=== PATIENT | male | born 1965 | race Caucasian/White ===

== ENCOUNTER 2025-05-19 06:18 | Emergency (ER) | payer MEDICARE, MEDICAID, SELFPAY ==
[2025-05-19] VITALS (7 sets, daily range): BP systolic 132–156; BP diastolic 72–91; PULSE 56–69; RESP 16–98; TEMP 36.5–37; O2SAT 95–100; BMI 28.7
--- NOTE | 2025-05-19 | XR_ITS ---
Examination: MRI brain without intravenous contrast. Date and time of exam: May 19, 2025 0844 hours INDICATIONS: Headache dizziness today Technique: Multiple axial and sagittal images of the brain obtained. Siemens high-resolution 1.5 Karishma short bore scanners utilized. Sagittal sections, T1-weighted, TR 500, TE 14, are performed. Axial sections proton-density and T2-weighted have been obtained. Inversion recovery axial images, TR 9, 260, TE 111, TI 2500. Diffusion weighted images, axial sections, TR 4800, TE 128, B value 1000 Axial sections, ADC map, TR 4800, TE 128 Findings: Enlargement of the sella turcica is not present. The optic chiasm and infundibular are not remarkable. Prepontine and interpeduncular cisterns are not enlarged. There is no localized enlargement of the medulla or eliza. Fourth ventricle and cerebellar tonsils appear normal in position. No subacute area of hemorrhage density is seen. Mass in the cerebellopontine angle region is not evident. Globes symmetrical. Orbital musculature including medial lateral rectus muscles do not exhibit abnormality. Diffusion-weighted images demonstrate no focus of restricted diffusion. Increased white matter signal multiple punctate foci increased signal in the white matter Mass effect upon the ventricular system is not identified. Impression: Negative for acute hemorrhage mass effect or midline shift No acute infarct Multiple punctate foci increased signal in the white matter, demyelinating disease pattern
--- NOTE | 2025-05-19 06:48 | PD.EDRME ---
Rapid Medical Screening Exam RME Arrival date/time: 05/19/25 06:18 Chief Complaint: Nausea/Vomiting/Diarrhea Time Seen by Provider: 05/19/25 06:21 Vital signs: Vital Signs Temperature 98.2 F 05/19/25 06:19 Pulse Rate 69 05/19/25 06:19 Respiratory Rate 18 05/19/25 06:19 Blood Pressure 147/91 H 05/19/25 06:19 Pulse Oximetry (%) 97 05/19/25 06:19 Oxygen Delivery Method Room Air 05/19/25 06:19 Pulse ox room air 97% Vital signs reviewed by provider: Yes RME Narrative: 59-year-old male presents to the urgent care with complaint of 2 days of intermittent vomiting with decreased appetite, feels hot however there is no recorded fever. Denies diarrhea. Has a decreased appetite. Also complains of dizziness.
--- NOTE | 2025-05-19 07:06 | XR_ITS ---
Examination: CT brain head without contrast. 2-D sagittal coronal reconstructions Date and time of exam:May 19, 2025, 0720 hours INDICATIONS: Headaches dizziness vomiting beginning 2 days ago CTDI: vol (mGy):52.5 DLP: (mGycm):1096 Technique: Multiple CT axial sections of the brain have been obtained, 5 mm slice thickness. Contrast has not been administered. 2-D sagittal, coronal reconstructions have been obtained Low dose protocols were performed. One or more of the following dose reduction techniques were used; automated exposure control, adjustment of the mA and/or KV according to patient size, use of iterative reconstruction technique. Findings: No significant ventricular enlargement. 15 mm low-density area in the right cerebellar hemisphere which may be artifactual, early infarct not excluded, the appearance of the clinically correlated Intra-axial or extra-axial hemorrhage density is not seen. No mass effect or midline shift Basal cisterns are not remarkable. Fourth ventricle is midline. Cranial vault intact. Impression: Negative for acute hemorrhage, mass effect or midline shift 15 mm low-density area in the right cerebellar hemisphere which may be artifactual, early infarct not excluded, the appearance should be clinically correlated Consider brain MRI follow-up, stroke protocol
--- NOTE | 2025-05-19 07:08 | EKG_ITS ---
[facility] Test Date: 2025-05-19 Pat Name: RAJ VICTOR Department: Room: - Gender: Male Medical Care Manager: : 1965 Requested By: Sravani Alanis Order Number: [id number] Reading MD: Sravani Alanis Measurements Intervals [place] Rate: 58 P: 58 KS: 147 QRS: 12 QRSD: 157 T: 49 QT: 431 QTc: 424 Interpretive Statements SINUS BRADYCARDIA RIGHT BUNDLE BRANCH BLOCK [120+ ms QRS DURATION, UPRIGHT V1, 40+ ms S IN I/aVL/V4/V5/V6] No previous ECG available for comparison /store/S0/[id number].pdf
--- NOTE | 2025-05-19 07:12 | PD.EDDIZZY ---
ED Dizzyness RME/HPI General Chief Complaint: Nausea/Vomiting/Diarrhea Stated Complaint: NV DIZZINESS Time Seen by Provider: 05/19/25 06:21 Arrival date/time: 05/19/25 06:18 Limitations: no limitations RME / HPI RME / HPI Narrative: 59-year-old male presents to the urgent care with complaint of 2 days of intermittent vomiting with decreased appetite, feels hot however there is no recorded fever. Denies diarrhea. Has a decreased appetite. Also complains of dizziness. DR. CINDY MÁRQUEZ ED EVALUATION: 59-year-old male with past medical history of pre-diabetes, hypertension, and chronic bronchitis presents to the Emergency Department with dizziness described as room-spinning, generalized weakness, shaking, chills, vomiting, and nausea. Onset of symptoms started yesterday. Patient denies fever, runny nose, or chest pain. No known medication allergies. Related Data Previous Rx's ?Medication ?Instructions ?Recorded ondansetron 4 mg disintegrating 4 mg PO Q12H PRN nausea and 05/19/25 tablet vomiting #6 tabs Allergies Allergy/AdvReac Type Severity Reaction Status Date / Time No Known Allergies Allergy Verified 05/19/25 06:22 Review of Systems Review of Systems Systems Reviewed: All systems reviewed, normal except as documented Past Medical History Social History SMOKING STATUS: Never smoker SUBSTANCE USE: does not use ALCOHOL: Never Past Medical History Comments PMH COMMENT: pre-diabetes, hypertension, and chronic bronchitis ED Exam General Limitations: Present no limitations General appearance: Present alert and in no apparent distress Head Head exam: Present atraumatic, normocephalic and normal inspection Eye Eye exam: Present normal appearance, PERRL, EOMI and nystagmus (vertical) ENT ENT exam: Present normal exam, normal oropharynx and mucous membranes moist Neck Neck exam: Present normal inspection, full ROM and trachea midline Chest Chest inspection: Present normal inspection and symmetric chest wall rise Respiratory Respiratory exam: Present normal lung sounds bilaterally Cardiovascular Cardiovascular exam: Present regular rate, normal rhythm and normal heart sounds Abdominal Exam Abdominal exam: Present soft and normal bowel sounds Extremities Exam Extremities exam: Present normal inspection and full ROM Back Exam Back exam: Present normal inspection and full ROM Neurological Exam Neurological exam: Present alert, oriented X3 and CN II-XII intact Psychiatric Psychiatric exam: Present normal affect and normal mood Skin Skin exam: Present warm, dry, intact and normal color Course Course Course Narrative: 817: Stroke alert initiated. Orders made at this time are congruent stroke protocol. Quality Measures none Orders Category Date Time Status Bedside Blood Glucose NOW Care 05/19/25 08:17 Completed Bedside COVID-19 Antigen Test NOW Care 05/19/25 07:06 Completed [employer] Consultant NOW Care 05/19/25 08:17 Completed Continuous Pulse Oximetry NOW Care 05/19/25 08:17 Completed EKG (ED ONLY) *Do not use* NOW Care 05/19/25 07:08 Completed Insert IV NOW Care 05/19/25 08:17 Completed MRI Screening NOW Care 05/19/25 07:06 Completed MRI Screening NOW Care 05/19/25 08:20 Completed NIH Stroke Scale now Care 05/19/25 08:17 Completed NPO NOW Care 05/19/25 08:17 Completed Neuro Check Q1HR Care 05/19/25 08:18 Completed Nurse Swallow Screen x1 Care 05/19/25 08:17 Completed Consult to Neurology / Tele-Neurology Stat Cons 05/19/25 08:[address] angio stroke protocol Stat Exams 05/19/25 08:[address] head/brain wo con Stat Exams 05/19/25 07:06 Completed EKG (ED Only) Stat Exams 05/19/25 07:08 Draft MR head/brain wo con Stat Exams 05/19/25 Completed CBC Stat Lab 05/19/25 07:40 Completed Comprehensive Metabolic Panel Stat Lab 05/19/25 07:40 Completed Lipase Stat Lab 05/19/25 07:40 Completed Partial Thromboplastin Time Stat Lab 05/19/25 07:40 Completed Prothrombin Time with INR Stat Lab 05/19/25 07:40 Completed Troponin I Stat Lab 05/19/25 07:40 Completed Urinalysis Stat Lab 05/19/25 08:00 Completed Ondansetron Odt [Zofran Odt] Med 05/19/25 06:51 Discontinued 4 mg PO X1 ONE Oxygen Delivery NOW RT 05/19/25 08:17 Completed Vital Signs Vital signs: Vital Signs Temperature 98.2 F 05/19/25 06:19 Pulse Rate 69 05/19/25 06:19 Respiratory Rate 18 05/19/25 06:19 Blood Pressure 147/91 H 05/19/25 06:19 Pulse Oximetry (%) 97 05/19/25 06:19 Oxygen Delivery Method Room Air 05/19/25 06:19 Dizziness MDM Narrative MDM Narrative:: I, Zainab Aldrich, am scribing for and in the presence of Dr. Omalley. Patient is a 59-year-old male with medical history notable for diabetes hypertension hyperlipidemia chronic pain that is in the emergency department with concerns for acute onset feeling with the room spinning, vomiting, feeling shaky and unwell. Vital signs and exam as listed. Ordered CT brain, MRI, labs EKG offered medication for symptom relief. Labs w/o an acute hematologic or metabolic abnormality. Urinalysis without evidence of infection troponin elevated EKG without evidence of ischemia arrhythmia. CT brain showed a 15 mm hypodensity in the right cerebellum, MRI showed multiple areas of hyperdensity concerning for possible demyelinating disease. I did discuss admission with the hospitalist service, and they discussed the case with on-call neurologist which recommended outpatient follow-up given that patient symptoms are completely resolved and he feels better. Imaging did not identify an acute stroke today. Hospital service discussed with patient, patient in agreement. Will discharge home with return precautions follow-up with his primary care doctor, as well as recommendation that he sees a neurologist. Close return precautions provided. Patient data External records reviewed:: [facility] previous records Clinical information provided by:: patient Social determinants that could affect healthcare access:: none Patient has the following chronic illnesses:: pre-diabetes, hypertension, and chronic bronchitis How is presenting disease/condition affected by chronic disease/condition?: exacerbated by Evaluation data The following diagnostics were reviewed and interpreted by me:: lab results, radiology exam(s) and EKG tracing(s) (My interpretation: EKG performed at 0717 hours, sinus bradycardia, rate 58, no ST-T wave changes) Lab and/or radiology exams considered but not ordered:: none Interpretation Summary: Procedure(s): CT head/brain wo con Accession Number(s): [id number] cc: Isabella Pretty PA-C; Rafa Tucker MD; Sravani Omalley MD~ Examination: CT brain head without contrast. 2-D sagittal coronal reconstructions Date and time of exam:May 19, 2025, 0720 hours INDICATIONS: Headaches dizziness vomiting beginning 2 days ago CTDI: vol (mGy):52.5 DLP: (mGycm):1096 Technique: Multiple CT axial sections of the brain have been obtained, 5 mm slice thickness. Contrast has not been administered. 2-D sagittal, coronal reconstructions have been obtained Low dose protocols were performed. One or more of the following dose reduction techniques were used; automated exposure control, adjustment of the mA and/or KV according to patient size, use of iterative reconstruction technique. Findings: No significant ventricular enlargement. 15 mm low-density area in the right cerebellar hemisphere which may be artifactual, early infarct not excluded, the appearance of the clinically correlated Intra-axial or extra-axial hemorrhage density is not seen. No mass effect or midline shift Basal cisterns are not remarkable. Fourth ventricle is midline. Cranial vault intact. Impression: Negative for acute hemorrhage, mass effect or midline shift 15 mm low-density area in the right cerebellar hemisphere which may be artifactual, early infarct not excluded, the appearance should be clinically correlated Consider brain MRI follow-up, stroke protocol Dictated By: Rafa Tucker MD Procedure(s): CT angio stroke protocol Accession Number(s): [id number] cc: Isabella Pretty PA-C; Rafa Tucker MD; Sravani Omalley MD~ Examination: CTA carotids with intravenous contrast CTA brain, head with intravenous contrast. 2-D sagittal, coronal reconstructions. 3-D reconstructions. Exam date and time: May 19, 2025 0834 hours INDICATIONS: Stroke alert, onset headache dizziness vomiting beginning 2 days ago CTDI: vol (mGy) 34.4 DLP: (mGycm) 508 Technique: Multiple CTA axial brain, head carotid images post intravenous contrast injection 75 cc, Isovue-370. 2-D sagittal, coronal reconstructions. 3-D reconstructions, 3-D post processing including vascular maximum intensity projection images. Low dose protocols were performed. One or more of the following dose reduction techniques were used; automated exposure control, adjustment of the mA and/or KV according to patient size, use of iterative reconstruction technique. Findings: No significant common carotid carotid bifurcation or internal carotid artery stenoses Dominant right vertebral artery with no critical vertebral artery stenoses. No cerebral large vessel arterial occlusions or thrombus IMPRESSION: No significant neck arterial stenoses No cerebral large vessel arterial occlusions or thrombus Dictated By: Rafa Tucker MD Procedure(s): MR head/brain wo con Accession Number(s): [id number] cc: Isabella Pretty PA-C; Rafa Tucker MD; Sravani Omalley MD~ Examination: MRI brain without intravenous contrast. Date and time of exam: May 19, 2025 0844 hours INDICATIONS: Headache dizziness today Technique: Multiple axial and sagittal images of the brain obtained. Siemens high-resolution 1.5 Karishma short bore scanners utilized. Sagittal sections, T1-weighted, TR 500, TE 14, are performed. Axial sections proton-density and T2-weighted have been obtained. Inversion recovery axial images, TR 9, 260, TE 111, TI 2500. Diffusion weighted images, axial sections, TR 4800, TE 128, B value 1000 Axial sections, ADC map, TR 4800, TE 128 Findings: Enlargement of the sella turcica is not present. The optic chiasm and infundibular are not remarkable. Prepontine and interpeduncular cisterns are not enlarged. There is no localized enlargement of the medulla or eliza. Fourth ventricle and cerebellar tonsils appear normal in position. No subacute area of hemorrhage density is seen. Mass in the cerebellopontine angle region is not evident. Globes symmetrical. Orbital musculature including medial lateral rectus muscles do not exhibit abnormality. Diffusion-weighted images demonstrate no focus of restricted diffusion. Increased white matter signal multiple punctate foci increased signal in the white matter Mass effect upon the ventricular system is not identified. Impression: Negative for acute hemorrhage mass effect or midline shift No acute infarct Multiple punctate foci increased signal in the white matter, demyelinating disease pattern Dictated By: Rafa Tucker MD Medications / Prescriptions Medications or Prescriptions considered but not ordered:: none Medication administrations:: Medication Administration History Discontinued Medications Ondansetron HCl (Ondansetron Odt 4 Mg Tabrap) 4 mg PO X1 ONE; Protocol Stop: 05/19/25 06:52 Last Admin: 05/19/25 07:15 Dose: 4 mg Documented By: ED see above Consultations Consultation(s) initiated? (list below): Yes Consultation #1 (Physician, Specialty, Details): Discussed test HPI, PMHx, lab, radiology results and/or management with resident working with the hospitalist. They consulted with neurologist who said there is nothing acute today and patient can follow up as an outpatient. Time: 12:02 Diagnosis Dizziness Differential Diagnosis: other (Vertigo, stroke, acs, arrythmia) Most likely diagnosis given after review of the tests above:: vertigo Admission Indicated Admission indicated?: not indicated Admission Request Was there a request for admission?: Yes Admission Attestation Admission request attestation: Admission discussed with hospital service however given reassuring workup, and their consultations with on-call neurologist, they recommend discharge. Patient in agreement. Disposition Plan Disposition Plan: Discharge Discharge Attestation Discharge Attestation: The patient and all family members were given an opportunity to ask questions and understood the discharge instructions. Discharge instructions specifically effects, indications for sooner follow up or return to the emergency department, and the expected course of current diagnosis. Patient condition: Stable Critical Care Time Critical Care Time Critical Care Time: Yes Total Critical Care Time (min.): 80 Attestation: The high probability of sudden, clinically significant deterioration in the patient?s condition required the highest level of my preparedness to intervene urgently. The services I provided to this patient were to treat and/or prevent clinically significant deterioration. Services included the following: chart data review, reviewing nursing notes and/or old charts, documentation time, senior financial consultant collaboration regarding findings and treatment options, medication orders and management, direct patient care, vital sign assessments and ordering, interpreting and reviewing diagnostic studies and lab tests. Aggregate critical care time includes only time during which I was engaged in work directly related to the patient?s care, as described above, whether at bedside or elsewhere in the Emergency Department. It did not include time spent performing other reported procedures or the services of residents, students, nurses or physician assistants. Discharge Plan Plan Patient Disposition: HOME (Self Care) Prescriptions/Referrals Prescriptions/Med Rec: New ondansetron 4 mg tablet,disintegrating 4 mg PO Q12H PRN (Reason: nausea and vomiting) Qty: 6 0RF Referrals: Isabella Pretty PA-C [Primary Care Provider] - In 1 week Problem List Clinical Impression: Vertigo Patient/Caregiver Discharge Instructions Education Materials: Vertigo Medicine Tx Additional Instructions: Please establish care with a neurologist this week. Your MRI was read as having multiple punctate areas of increased density concerning for demyelinating disease. The CT of your brain showed a 15 mm hypodensity in the cerebellum. Given your workup, we discussed admission with the hospitalist team and neurology, they recommended outpatient follow-up with a neurologist as well as physical therapy. If you have recurrence of symptoms or any other symptoms of concern please return to the emergency department immediately. Print Language: Ukrainian Stand Alone Forms: Jodie Award Info., Patient Portal Info Letter
[2025-05-19] MEDS: ONDANSETRON ODT 4 MG TABRAP PO (07:15)
[2025-05-19 08:10] LABS: Collection Type, Urine Clean Catch
[2025-05-19 08:14] LABS: Amorphous Crystals,Urine Present (Absent); Bacteria,Urine Rare; Bilirubin,Urine Negative (Negative); Blood,Urine Negative (Negative); Clarity,Urine Turbid (Clear/Hazy); Color,Urine Yellow (Lt Yel-Yel); Glucose, Urine Negative (Negative); Ketones,Urine Negative (Negative); Leukocyte Esterase,Urine Negative (Negative); Nitrite,Urine Negative (Negative); PH,Urine 8.5 (5.0-7.0); Protein,Urine 1+ (Neg - Trace); RBC,Urine 1 /hpf (0-3); Specific Gravity,Urine 1.028 (1.001-1.035); Squamous Epithelial Cell,Urine 1 /hpf (0-5); Urobilinogen,Urine Negative mg/dL (0.0-1.0); WBC,Urine < 1 /hpf (0-5)
--- NOTE | 2025-05-19 08:17 | XR_ITS ---
Examination: CTA carotids with intravenous contrast CTA brain, head with intravenous contrast. 2-D sagittal, coronal reconstructions. 3-D reconstructions. Exam date and time: May 19, 2025 0834 hours INDICATIONS: Stroke alert, onset headache dizziness vomiting beginning 2 days ago CTDI: vol (mGy) 34.4 DLP: (mGycm) 508 Technique: Multiple CTA axial brain, head carotid images post intravenous contrast injection 75 cc, Isovue-370. 2-D sagittal, coronal reconstructions. 3-D reconstructions, 3-D post processing including vascular maximum intensity projection images. Low dose protocols were performed. One or more of the following dose reduction techniques were used; automated exposure control, adjustment of the mA and/or KV according to patient size, use of iterative reconstruction technique. Findings: No significant common carotid carotid bifurcation or internal carotid artery stenoses Dominant right vertebral artery with no critical vertebral artery stenoses. No cerebral large vessel arterial occlusions or thrombus IMPRESSION: No significant neck arterial stenoses No cerebral large vessel arterial occlusions or thrombus
[2025-05-19 08:18] LABS: Basophils # (Auto) 0.1 Thou/mm3 (0.0-0.2); Basophils % (Auto) 1 % (0-2.5); Eosinophils # (Auto) 0.3 Thou/mm3 (0.0-0.5); Eosinophils % (Auto) 2 % (0-10); Hematocrit 42.8 % (41.0-53.0); Hemoglobin 14.7 g/dL (13.5-16.0); Immature Granulocytes Auto 0.07 Thou/mm3 (0.00-0.00); Lymphocytes # (Auto) 2.0 Thou/mm3 (1.0-4.8); Lymphocytes % (Auto) 15 % (10-50); Mean Corpuscular HGB Conc 34.3 g/dl (31.0-37.0); Mean Corpuscular Hemoglobin 30.5 pg (25.0-35.0); Mean Corpuscular Volume 89 fL (80-100); Monocytes # (Auto) 0.9 Thou/mm3 (0.0-0.8); Monocytes % (Auto) 7 % (0-12); Neutrophils # (Auto) 9.7 Thou/mm3 (1.8-7.7); Neutrophils % (Auto) 75 % (37-80); Nucleated Red Blood Cell # 0.00 Thou/mm3 (0.00-0.00); Nucleated Red Blood Cell % 0 /100 WBC (0); Platelet Count 210 Thou/mm3 (140-440); RDW Standard Deviation 42.7 fL (35.1-43.9); Red Blood Count 4.82 Miln/mm3 (4.50-5.90); White Blood Count 13.0 Thou/mm3 (3.8-10.6)
[2025-05-19 08:38] LABS: Alanine Aminotransferase 45 U/L (10-49); Albumin, Serum 4.7 gm/dL (3.4-4.8); Albumin/Globulin Ratio 1.9 (1.2-2.2); Alkaline Phosphatase 42 U/L (46-116); Anion Gap 8 (7-16); Aspartate Amino Transferase 30 U/L (0-34); BUN/Creatinine Ratio 16 Ratio (12-20); Bilirubin,Total 0.7 mg/dL (0.3-1.2); Blood Urea Nitrogen 14 mg/dL (9-23); Calcium 10.1 mg/dL (8.3-10.6); Calcium (Corrected) 10.1 mg/dL (8.5-10.1); Carbon Dioxide 28.7 mMol/L (20.0-31.0); Chloride 107 mMol/L (98-107); Creatinine (Component) 0.9 mg/dL (0.6-1.3); Estimated Creatinine Clearance 98.9 mL/min (>60); Globulin 2.5 gm/dL (2.3-3.5); Glucose 130 mg/dL (74-106); Lipase 43 U/L (12-53); Osmolality,Calculated 289 (275-295); Potassium 4.7 mMol/L (3.4-5.1); Sodium 144 mMol/L (136-145); Total Protein 7.2 gm/dL (5.7-8.2); Troponin I < 0.020 ng/mL (0.0-0.045); eGFR > 60 See Note
[2025-05-19 09:03] LABS: INR 1.0 (0.9-1.3); Partial Thromboplastin Time 26.9 Seconds (22.0-36.0); Prothrombin Time 10.7 Seconds (9.0-12.2)
--- NOTE | 2025-05-19 09:48 | PC.NURSE ---
Patient came in to ED for dizziness and vomiting since yesterday afternoon around 1700. Patient denied any weakness, patient alert and oriented X4. Vitals stable. Patient had head CT which recommended MRI for further evaluation of low density area. Dr. Omalley was made aware and called stroke alert at 0818. Patient taken for CT angiogram at that time after IV was placed. Patient evaluated by Teleneuro provider [place]. Patient states he only has history of high blood pressure, high cholesterol and some back issues, has never had surgery or been diagnosed with diabetes. Patient will require further stroke workout. Patient agrees with plan. Plan of care ongoing.
--- NOTE | 2025-05-19 10:29 | PD.TNEURO ---
Tele Neuro Consultation Consultation Date 05/19/25 Most Recent Vital Signs Last Vital Signs Temp 98.2 F 05/19/25 09:51 Pulse 64 05/19/25 09:51 Resp 17 05/19/25 09:51 BP 156/72 H 05/19/25 09:51 Pulse Ox 95 05/19/25 09:51 O2 Del Method Room Air 05/19/25 09:51 Laboratory-Coagulation Panel PT 10.7 Seconds (9.0-12.2) 05/19/25 07:40 INR 1.0 (0.9-1.3) 05/19/25 07:40 APTT 26.9 Seconds (22.0-36.0) 05/19/25 07:40 Consultation Narrative [facility] Patient Name:???Joshua Vaughn Date of :???1965 Identification Number:??? Date of Service:???05/19/2025 08:21:21 Diagnosis:?R42 - Dizziness/ Vertigo/ Giddiness Impression: ?Patient is a 59-year-old gentleman past medical history significant for hypertension and hyperlipidemia who presents for evaluation of lightheadedness, throwing up and vertigo. ?Symptoms began yesterday around 5 PM. ? ?Assessment ?Vertigo ? ?Patient presents with vertigo. ?Differential diagnosis includes peripheral for central etiology. CT head negative for acute abnormalities. Possible right cerebellar lesion seen. Not a thrombolytic candidate. ?CT head and neck pending ?Recommend MRI brain ? Our recommendations are outlined below. Recommendations: ? Stroke/Telemetry Floor ? Neuro Checks (Q2) ? Bedside Swallow Eval ? DVT Prophylaxis ? IV Fluids, Normal Saline ? Head of Bed 30 Degrees ? Euglycemia and Avoid Hyperthermia (PRN Acetaminophen) ? Initiate or continue Aspirin 81 MG daily Sign Out: ? Discussed with Emergency Department Provider Advanced Imaging:Advanced Imaging Deferred because: CTA h&N will be done Metrics: Last Known Well: 05/18/2025 17:00:08 Dispatch Time: 05/19/2025 08:21:21 Arrival Time: 05/19/2025 06:18:08 Initial Response Time: 05/19/2025 08:23:26Symptoms: lightheaded and throwing up. Initial patient interaction: 05/19/2025 08:22:41 NIHSS Assessment Completed: 05/19/2025 08:49:08Patient is not a candidate for Thrombolytic. Thrombolytic Medical Decision: 05/19/2025 08:49:10Patient was not deemed candidate for Thrombolytic because of following reasons: LKW outside 4.[address] Head: CT head unremarkable for acute infarction or hemorrhage per Radiology: No acute abnormalities Right cerebellar hypodensity - artifact vs stroke Primary Provider Notified of Diagnostic Impression and Management Plan on: 05/19/2025 08:46:33 History of Present Illness:Patient is a 59 year old Male. Patient was brought by private transportation with symptoms of lightheaded and throwing up. Patient is a 59-year-old gentleman past medical history significant for hypertension and hyperlipidemia who presents for evaluation of lightheadedness, throwing up and vertigo. Symptoms began yesterday around 5 PM. He presents to the ED this morning for further evaluation. CT head was done which was negative for acute abnormalities. Does show a right cerebellar hypodensity concerning for artifact or stroke. CTA head and neck has been done results are pending. Patient will go for stat MRI. ? Past Medical History: ?Hypertension ?Hyperlipidemia ?There is no history of Diabetes Mellitus Medications: No Anticoagulant use? No Antiplatelet use Reviewed EMR for current medications Allergies:? Reviewed Social History: Smoking: No Alcohol Use: No Drug Use: No Family History: There is no family history of premature cerebrovascular disease pertinent to this consultation ROS : 14 Points Review of Systems was performed and was negative except mentioned in HPI. Past Surgical History: There Is No Surgical History Contributory To Today?s Visit ? Examination: BP(143/86),?Pulse(60), 1A: Level of Consciousness - Alert; keenly responsive?+ 0 1B: Ask Month and Age - Both Questions Right?+ 0 1C: Blink Eyes & Squeeze Hands - Performs Both Tasks?+ 0 2: Test Horizontal Extraocular Movements - Normal?+ 0 3: Test Visual Cuevas - No Visual Loss?+ 0 4: Test Facial Palsy (Use Grimace if Obtunded) - Normal symmetry?+ 0 5A: Test Left Arm Motor Drift - No Drift for 10 Seconds?+ 0 5B: Test Right Arm Motor Drift - No Drift for 10 Seconds?+ 0 6A: Test Left Leg Motor Drift - No Drift for 5 Seconds?+ 0 6B: Test Right Leg Motor Drift - No Drift for 5 Seconds?+ 0 7: Test Limb Ataxia (FNF/Heel-Lewis) - No Ataxia?+ 0 8: Test Sensation - Normal; No sensory loss?+ 0 9: Test Language/Aphasia - Normal; No aphasia?+ 0 10: Test Dysarthria - Normal?+ 0 11: Test Extinction/Inattention - No abnormality?+ 0 NIHSS Score:?0 Pre-Morbid Modified Prescott Scale:0 Points = No symptoms at all Spoke with :?Dr. Omalley This consult was conducted in real time using interactive audio and video technology. Patient was informed of the technology being used for this visit and agreed to proceed. Patient located in hospital and provider located at home/office setting. Patient is being evaluated for possible acute neurologic impairment and high probability of imminent or life-threatening deterioration. I spent total of 35 minutes providing care to this patient, including time for face to face visit via telemedicine, review of medical records, imaging studies and discussion of findings with providers, the patient and/or family. Dr Ricky Melara [facility] For Inpatient follow-up with [facility] physician please call [facility] at . As we are not an outpatient service for any post hospital discharge needs please contact the hospital for assistance. If you have any questions for the [facility] physicians or need to reconsult for clinical or diagnostic changes please contact us via [facility] at .
--- NOTE | 2025-05-19 10:33 | ESCONSULT_ITS ---
Tele Neuro Consultation Consultation Date 05/19/25 Most Recent Vital Signs Last Vital Signs Temp 98.2 F 05/19/25 09:51 Pulse 64 05/19/25 09:51 Resp 17 05/19/25 09:51 BP 156/72 H 05/19/25 09:51 Pulse Ox 95 05/19/25 09:51 O2 Del Method Room Air 05/19/25 09:51 Laboratory-Coagulation Panel PT 10.7 Seconds (9.0-12.2) 05/19/25 07:40 INR 1.0 (0.9-1.3) 05/19/25 07:40 APTT 26.9 Seconds (22.0-36.0) 05/19/25 07:40 Consultation Narrative [facility] Patient Name:???Joshua Vaughn Date of :???1965 Identification Number:??? Date of Service:???05/19/2025 08:21:21 Diagnosis:?R42 - Dizziness/ Vertigo/ Giddiness Impression: ?Patient is a 59-year-old gentleman past medical history significant for hypertension and hyperlipidemia who presents for evaluation of lightheadedness, throwing up and vertigo. ?Symptoms began yesterday around 5 PM. ? ?Assessment ?Vertigo ? ?Patient presents with vertigo. ?Differential diagnosis includes peripheral for central etiology. CT head negative for acute abnormalities. Possible right cerebellar lesion seen. Not a thrombolytic candidate. ?CT head and neck pending ?Recommend MRI brain ? Our recommendations are outlined below. Recommendations: ? Stroke/Telemetry Floor ? Neuro Checks (Q2) ? Bedside Swallow Eval ? DVT Prophylaxis ? IV Fluids, Normal Saline ? Head of Bed 30 Degrees ? Euglycemia and Avoid Hyperthermia (PRN Acetaminophen) ? Initiate or continue Aspirin 81 MG daily Sign Out: ? Discussed with Emergency Department Provider Advanced Imaging:Advanced Imaging Deferred because: CTA h&N will be done Metrics: Last Known Well: 05/18/2025 17:00:08 Dispatch Time: 05/19/2025 08:21:21 Arrival Time: 05/19/2025 06:18:08 Initial Response Time: 05/19/2025 08:23:26Symptoms: lightheaded and throwing up. Initial patient interaction: 05/19/2025 08:22:41 NIHSS Assessment Completed: 05/19/2025 08:49:08Patient is not a candidate for Thrombolytic. Thrombolytic Medical Decision: 05/19/2025 08:49:10Patient was not deemed candidate for Thrombolytic because of following reasons: LKW outside 4.[address] Head: CT head unremarkable for acute infarction or hemorrhage per Radiology: No acute abnormalities Right cerebellar hypodensity - artifact vs stroke Primary Provider Notified of Diagnostic Impression and Management Plan on: 05/19/2025 08:46:33 History of Present Illness:Patient is a 59 year old Male. Patient was brought by private transportation with symptoms of lightheaded and throwing up. Patient is a 59-year-old gentleman past medical history significant for hypertension and hyperlipidemia who presents for evaluation of lightheadedness, throwing up and vertigo. Symptoms began yesterday around 5 PM. He presents to the ED this morning for further evaluation. CT head was done which was negative for acute abnormalities. Does show a right cerebellar hypodensity concerning for artifact or stroke. CTA head and neck has been done results are pending. Patient will go for stat MRI. ? Past Medical History: ?Hypertension ?Hyperlipidemia ?There is no history of Diabetes Mellitus Medications: No Anticoagulant use? No Antiplatelet use Reviewed EMR for current medications Allergies:? Reviewed Social History: Smoking: No Alcohol Use: No Drug Use: No Family History: There is no family history of premature cerebrovascular disease pertinent to this consultation ROS : 14 Points Review of Systems was performed and was negative except mentioned in HPI. Past Surgical History: There Is No Surgical History Contributory To Today?s Visit ? Examination: BP(143/86),?Pulse(60), 1A: Level of Consciousness - Alert; keenly responsive?+ 0 1B: Ask Month and Age - Both Questions Right?+ 0 1C: Blink Eyes & Squeeze Hands - Performs Both Tasks?+ 0 2: Test Horizontal Extraocular Movements - Normal?+ 0 3: Test Visual Cuevas - No Visual Loss?+ 0 4: Test Facial Palsy (Use Grimace if Obtunded) - Normal symmetry?+ 0 5A: Test Left Arm Motor Drift - No Drift for 10 Seconds?+ 0 5B: Test Right Arm Motor Drift - No Drift for 10 Seconds?+ 0 6A: Test Left Leg Motor Drift - No Drift for 5 Seconds?+ 0 6B: Test Right Leg Motor Drift - No Drift for 5 Seconds?+ 0 7: Test Limb Ataxia (FNF/Heel-Lewis) - No Ataxia?+ 0 8: Test Sensation - Normal; No sensory loss?+ 0 9: Test Language/Aphasia - Normal; No aphasia?+ 0 10: Test Dysarthria - Normal?+ 0 11: Test Extinction/Inattention - No abnormality?+ 0 NIHSS Score:?0 Pre-Morbid Modified George Scale:0 Points = No symptoms at all Spoke with :?Dr. Omalley This consult was conducted in real time using interactive audio and video technology. Patient was informed of the technology being used for this visit and agreed to proceed. Patient located in hospital and provider located at home/office setting. Patient is being evaluated for possible acute neurologic impairment and high probability of imminent or life-threatening deterioration. I spent total of 35 minutes providing care to this patient, including time for face to face visit via telemedicine, review of medical records, imaging studies and discussion of findings with providers, the patient and/or family. Dr Ricky Melara [facility] For Inpatient follow-up with [facility] physician please call [facility] at . As we are not an outpatient service for any post hospital discharge needs please contact the hospital for assistance. If you have any questions for the [facility] physicians or need to re consult for clinical or diagnostic changes please contact us via [facility] at .
--- NOTE | 2025-05-19 16:38 | PD.RESEVENT ---
Documentation for date of: 05/19/25 Event Note Event Note: Patient was seen for potential admit for stroke workup in setting of new onset dizziness with nausea and vomiting. Symptoms had resolved with zofran, MRI negative at time of examination. Mild horizontal nystagmus that resolved with gaze fixation noted, otherwise exam benign, no focal neurological deficits. Spoke with inpatient neurology, who recommended discharge from ED with outpatient follow up for vertigo. Spoke with ED doctor, who was agreeable. Explained the situation with the patient, including plan to followup with primary doctor. Patient has appointment scheduled in 1 week, verbalized understanding of plan. Brennan Mejia MD PGY-2
== END 2025-05-19 12:34 | disposition home or self-care (01) ==
PROVIDERS: Physician Assistant; Emergency Provider Emergency Medicine; PCP Physician Assistant Medical
DX: R90.82 White matter disease, unspecified (principal); G93.89 Other specified disorders of brain; R51.9 Headache, unspecified; R00.1 Bradycardia, unspecified; I45.10 Unspecified right bundle-branch block; I10 Essential (primary) hypertension
CPT/HCPCS: 36415; 70450; 70496; 70498; 70551; 80053; 81001; 83690; 84484; 85025; 85610; 85730; 87811; 93005; 99284; A4649; Q0162; Q9967

== ENCOUNTER 2025-06-03 11:07 | Emergency (ER) | payer MEDICARE, SELFPAY ==
--- NOTE | 2025-06-03 11:13 | EKG_ITS ---
[facility] Test Date: 2025-06-03 Pat Name: RAJ VICTOR Department: Room: - Gender: Male [employer]: : 1965 Requested By: Julito Alanis Order Number: [id number] Reading MD: Julito Alanis Measurements Intervals [place] Rate: 58 P: 61 OR: 147 QRS: 35 QRSD: 161 T: 57 QT: 456 QTc: 448 Interpretive Statements SINUS BRADYCARDIA RIGHT BUNDLE BRANCH BLOCK [120+ ms QRS DURATION, UPRIGHT V1, 40+ ms S IN I/aVL/V4/V5/V6] Compared to ECG 05/19/2025 07:17:46 No significant changes /store/S0/[id number]/[id number].pdf
[2025-06-03 11:18] VITALS: BP 159/95; PULSE 59; RESP 20; TEMP 36.6; O2SAT 98; BMI 28.7
--- NOTE | 2025-06-03 11:46 | XR_ITS ---
Examination: PA chest single view TECHNIQUE: Upright PA chest single view Date and time: June 13, 2025 1244 hours INDICATIONS: Shortness of breath diaphoresis this morning. FINDINGS: Normal heart size No pneumonia or pulmonary edema. The osseous structures are intact IMPRESSION: No active disease
--- NOTE | 2025-06-03 11:49 | EDNOTE_ITS ---
<Statement entered by Halley Maddox MD - 06/03/25 15:15> As co-signing physician, I was present and available for consult prn. I concur with the plan and care as documented by the midlevel provider. ED SOB =RME/HPI General Chief Complaint: Shortness of Breath/Dyspnea Stated Complaint: SOB, sweating, abdominal pain Time Seen by Provider: 06/03/25 11:17 Arrival date/time: 06/03/25 11:07 RME / HPI RME / HPI Narrative: 59-year-old male patient with significant history of COPD, came in for evaluation regarding shortness of breath. Patient has been having worsening shortness of breath since earlier this morning, associated with epigastric pain. Patient denies any vomiting denies any fever denies any chest pain denies any other complaints no medications taken prior to arrival. Patient did not use his inhaler today. Related Data Previous Rx's ?Medication ?Instructions ?Recorded ondansetron 4 mg disintegrating 4 mg PO Q12H PRN nause a and 05/19/25 tablet vomiting #6 tabs famotidine 40 mg tablet (Pepcid) 40 mg PO BID #14 tabs 06/03/25 prednisone 50 mg tablet 50 mg PO QDAY #7 tabs Allergies Allergy/AdvReac Type Severity Reaction Status Date / Time No Known Allergies Allergy Verified 06/03/25 11:12 Review of Systems Review of Systems Narrative Review of Systems: Review of system reviewed and within normal limits except mentioned in HPI ED Exam Narrative Physical exam: VITAL SIGNS: Reviewed. GENERAL APPEARANCE: Alert and interactive, follows commands, no acute distress, HEAD AND FACE: Non-traumatic. ENT: PERRL, pink conjunctivitis, eyelid no trauma, Mucous membrane moist. NECK: Supple, nontender, no nuchal rigidity. CHEST: No tenderness, no crepitus, no paradoxical movement, no retractions. LUNGS: Clear, well ventilated, symmetric, no rales, no wheezing, no ronchi, no stridor, good breath sounds bilaterally. HEART: Regular rate, regular rhythm, no murmur, no gallops. ABDOMEN: Soft, positive bowel sounds, nondistended, no guarding, nontender, no rebound, no masses, RECTAL: Deferred. GENITAL: Deferred. NEUROLOGICAL: Gross motor function intact sensory function intact, Appropriate for age. MUSCULOSKELETAL: low back nontender, full range of motion. EXTREMITIES: Nontender, full range of motion. SKIN: Color pink, dry, no rash, no lacerations, no abrasions, no contusions. LYMPHATICS: Deferred. Course Quality Measures none Orders Category Date Time Status Bedside COVID-19 Antigen Test NOW Care 06/03/25 11:46 Active EKG (ED ONLY) *Do not use* NOW Care 06/03/25 11:13 Completed EKG (ED ONLY) *Do not use* NOW Care 06/03/25 11:46 Completed EKG (ED Only) Stat Exams 06/03/25 11:13 Draft EKG (ED Only) Stat Exams 06/03/25 11:46 Ordered XR chest 1V Stat Exams 06/03/25 11:46 Completed B-Type Natriuretic Peptide Stat Lab 06/03/25 12:15 Completed CBC Stat Lab 06/03/25 12:15 Completed Comprehensive Metabolic Panel Stat Lab 06/03/25 12:15 Completed Partial Thromboplastin Time Stat Lab 06/03/25 12:15 Completed Troponin I Stat Lab 06/03/25 12:15 Completed Albuterol/Ipratr Rt Bita [Duoneb Rt Bita] Med 06/03/25 11:46 Discontinued 3 ml INH X1 ONE Dexamethasone Inj [Decadron Inj] Med 06/03/25 11:46 Discontinued 10 mg IM X1 ONE mg Hyd/Al Hyd/Fadumo Susp [Maalox Susp] Med 06/03/25 11:46 Discontinued 30 ml PO X1 ONE Vital Signs Vital signs: Vital Signs Temperature 97.9 F 06/03/25 11:18 Pulse Rate 59 L 06/03/25 11:18 Respiratory Rate 20 06/03/25 11:18 Blood Pressure 159/95 H 06/03/25 11:18 Pulse Oximetry (%) 98 06/03/25 11:18 Oxygen Delivery Method Room Air 06/03/25 11:18 Shortness of Breath / Dyspnea MDM Narrative MDM Narrative:: 59-year-old male patient with significant history of COPD, came in for evaluation regarding shortness of breath. Patient has been having worsening shortness of breath since earlier this morning, associated with epigastric pain. Patient denies any vomiting denies any fever denies any chest pain denies any other complaints no medications taken prior to arrival. Patient did not use his inhaler today. Patient's cardiac workup today all came back normal including normal troponin. Chest x-ray came back unremarkable. EKG showed sinus bradycardia, ventricular rate of 58 bpm, no ST segment elevation or depression noted. Patient received DuoNeb breathing treatment, Decadron, with complete resolution of symptoms. Patient appears nontoxic and hemodynamically stable .Decision to discharge the patient. The patient/family was given an opportunity to ask questions and understood their discharge instructions. Discharge instructions specifically included follow up provider and time frame, current and/or new medications and possible side effects, indications for sooner follow up or return to the emergency department, and the expected course of current diagnosis. Patient reports feeling better as well and giving evidence of significant clinical improvement, I believe patient is now a candidate for discharge. Satting 99% on room air prior to discharge Patient data External records reviewed:: None Clinical information provided by:: none Social determinants that could affect healthcare access:: none Patient has the following chronic illnesses:: COPD How is presenting disease/condition affected by chronic disease/condition?: no chronic disease Evaluation data The following diagnostics were reviewed and interpreted by me:: lab results, radiology exam(s) and EKG tracing(s) Lab and/or radiology exams considered but not ordered:: None Interpretation Summary: See results MDM Medications / Prescriptions Medications or Prescriptions considered but not ordered:: None Medication administrations:: Medication Administration History Discontinued Medications Al Hydrox/Mg Hydrox/Simethicone (Mg Hyd/Al Hyd/Fadumo (Maalox Reg) Susp 30 Ml Udc) 30 ml PO X1 ONE Stop: 06/03/25 11:47 Last Admin: 06/03/25 11:53 Dose: 30 ml Documented By: RAISA Albuterol/Ipratropium (Albuterol/Ipratropium (Duoneb) Rt Bita 3 Ml Nebu) 3 ml INH X1 ONE Stop: 06/03/25 11:47 Last Admin: 06/03/25 12:26 Dose: 3 ml Documented By: LIS Dexamethasone Sodium Phosphate (Dexamethasone Sod Phos Inj 10 Mg/Ml Vial) 10 mg IM X1 ONE Stop: 06/03/25 11:47 Last Admin: 06/03/25 11:54 Dose: 10 mg Documented By: RAISA Decadron Maalox and DuoNeb breathing treatment Consultations Consultation(s) initiated? (list below): No Diagnosis Shortness of Breath Differential Diagnosis: acute exacerbation of chronic obstructive airways disease, community acquired pneumonia and asthma with exacerbation Most likely diagnosis given after review of the tests above:: Acute exacerbation of COPD Admission Indicated Admission indicated?: not indicated Admission Request Was there a request for admission?: No Disposition Plan Disposition Plan: Discharge Discharge Attestation Discharge Attestation: The patient and all family members were given an opportunity to ask questions and understood the discharge instructions. Discharge instructions specifically effects, indications for sooner follow up or return to the emergency department, and the expected course of current diagnosis. Patient condition: Stable Discharge Plan Plan Patient Disposition: HOME (Self Care) Discharge Disposition comment: stable Prescriptions/Referrals Prescriptions/Med Rec: New famotidine [Pepcid] 40 mg tablet 40 mg PO BID Qty: 14 0RF prednisone 50 mg tablet 50 mg PO QDAY Qty: 7 0RF No Action ondansetron 4 mg tablet,disintegrating 4 mg PO Q12H PRN (Reason: nausea and vomiting) Qty: 6 0RF Referrals: Isabella Pretty PA-C [Primary Care Provider] - In 1 week Problem List Clinical Impression: Acute exacerbation of chronic obstructive airways disease Patient/Caregiver Discharge Instructions Discharge Activity: activity as tolerated Education Materials: Chest and Lung Problems Additional Instructions: Thank you for the opportunity for serving you today. You are stable for discharged . You are advised to: Follow-up with your PCP in 1 to 2 days Return to ED for worsening of symptoms Increase oral fluids Take medication as prescribed continue taking your COPD medications Print Language: Belizean Stand Alone Forms: Jodie Award Info., Patient Portal Info Letter [facility]AI Supervising Physician JAI Supervising Physician: MD Jose Daniel
[2025-06-03] MEDS: MG HYD/AL HYD/SIME (Maalox Reg) SUSP 30 ML UDC PO (11:53)
[2025-06-03] MEDS: DEXAMETHASONE SOD PHOS INJ 10 MG/ML VIAL IM (11:54)
[2025-06-03 12:26] VITALS: PULSE 58; RESP 18; O2SAT 99
[2025-06-03] MEDS: ALBUTEROL/IPRATROPIUM (Duoneb) RT SOL 3 ML NEBU INH (12:26)
[2025-06-03 12:47] LABS: Basophils # (Auto) 0.1 Thou/mm3 (0.0-0.2); Basophils % (Auto) 1 % (0-2.5); Eosinophils # (Auto) 0.1 Thou/mm3 (0.0-0.5); Eosinophils % (Auto) 1 % (0-10); Hematocrit 44.1 % (41.0-53.0); Hemoglobin 15.0 g/dL (13.5-16.0); Immature Granulocytes Auto 0.03 Thou/mm3 (0.00-0.00); Lymphocytes # (Auto) 1.4 Thou/mm3 (1.0-4.8); Lymphocytes % (Auto) 12 % (10-50); Mean Corpuscular HGB Conc 34.0 g/dl (31.0-37.0); Mean Corpuscular Hemoglobin 30.5 pg (25.0-35.0); Mean Corpuscular Volume 90 fL (80-100); Monocytes # (Auto) 0.7 Thou/mm3 (0.0-0.8); Monocytes % (Auto) 6 % (0-12); Neutrophils # (Auto) 9.4 Thou/mm3 (1.8-7.7); Neutrophils % (Auto) 80 % (37-80); Nucleated Red Blood Cell # 0.00 Thou/mm3 (0.00-0.00); Nucleated Red Blood Cell % 0 /100 WBC (0); Platelet Count 235 Thou/mm3 (140-440); RDW Standard Deviation 42.4 fL (35.1-43.9); Red Blood Count 4.92 Miln/mm3 (4.50-5.90); White Blood Count 11.6 Thou/mm3 (3.8-10.6)
[2025-06-03 13:01] LABS: Partial Thromboplastin Time 27.9 Seconds (22.0-36.0)
[2025-06-03 13:04] LABS: B-Type Natriuretic Peptide 38 pg/mL (0-100)
[2025-06-03 13:05] LABS: Alanine Aminotransferase 34 U/L (10-49); Albumin, Serum 4.6 gm/dL (3.4-4.8); Albumin/Globulin Ratio 2.1 (1.2-2.2); Alkaline Phosphatase 40 U/L (46-116); Anion Gap 7 (7-16); Aspartate Amino Transferase 28 U/L (0-34); BUN/Creatinine Ratio 17 Ratio (12-20); Bilirubin,Total 0.7 mg/dL (0.3-1.2); Blood Urea Nitrogen 17 mg/dL (9-23); Calcium 10.2 mg/dL (8.3-10.6); Calcium (Corrected) 10.2 mg/dL (8.5-10.1); Carbon Dioxide 25.8 mMol/L (20.0-31.0); Chloride 106 mMol/L (98-107); Creatinine (Component) 1.0 mg/dL (0.6-1.3); Estimated Creatinine Clearance 89.0 mL/min (>60); Globulin 2.2 gm/dL (2.3-3.5); Glucose 128 mg/dL (74-106); Osmolality,Calculated 281 (275-295); Potassium 4.5 mMol/L (3.4-5.1); Sodium 139 mMol/L (136-145); Total Protein 6.8 gm/dL (5.7-8.2); Troponin I < 0.020 ng/mL (0.0-0.045); eGFR > 60 See Note
== END 2025-06-03 15:04 | disposition home or self-care (01) ==
PROVIDERS: Nurse Practitioner Family; Emergency Provider Emergency Medicine; PCP Physician Assistant Medical
DX: J44.1 Chronic obstructive pulmonary disease with (acute) exacerbation (principal); R00.1 Bradycardia, unspecified; I45.10 Unspecified right bundle-branch block
CPT/HCPCS: 36415; 36600; 71045; 80053; 82803; 83880; 84484; 85025; 85730; 87040; 93005; 94640; 99283; A9270; J1100

== ENCOUNTER → 2025-08-23 | Outpatient (CLI) | payer MEDICARE, MEDICAID, SELFPAY ==
--- NOTE | 2025-08-23 08:00 | XR_ITS ---
Exam: MRI knee without contrast, left Date and time of exam: August 15, 2025, 2033 hours INDICATIONS: Left knee pain 15 years joint clicking Technique: Multiple axial, coronal, and sagittal sections on the knee have been obtained. T2-Weighted sagittal, fat-suppressed images, TR 3,500, TE 62, T2 weighted coronal fat-saturated images, TR 3,500, TE 62 Proton density sagittal sections, TR 1800, TE 31. T-1 weighted coronal images, TR 524, TE 13.0 Findings: Medial meniscus anterior horn intact. Medial meniscus, body horizontal linear tear. Posterior horn medial meniscus horizontal linear tear communicating with inner margin. Lateral meniscus anterior horn is intact Lateral meniscus, body is intact Posterior horn lateral meniscus is intact Anterior cruciate ligament moderate sprain Posterior cruciate ligament appears intact. Knee effusion is moderate. Quadriceps and patellar tendons appear intact. There is no evidence of tendinosis. Inflammatory change or fracture of Hoffa's fat pad is not seen. Medial patellar facet demonstrates mild thinning. Lateral patellar facet cartilage demonstrates mild thinning. Trochlear cartilage demonstrates mild thinning. Marrow signal adequate. Medial collateral ligament appears intact. No meniscocapsular separation is seen. Illiotibial band and fibular collateral ligament are intact. Biceps femoris tendons appear intact. Medial femoral condylar articular cartilage demonstrates moderate thinning. Lateral femoral condylar articular cartilage demonstrates mild thinning. Tibial plateau cartilage demonstrates moderate medial thinning. Impression: Tears of the body and posterior horn medial meniscus Moderate sprain anterior cruciate ligament
--- NOTE | 2025-08-23 08:30 | XR_ITS ---
Examination: MRI lumbar spine without contrast Date and time of exam: August 23, 2025, 0805 hours INDICATIONS: Low back pain 15 years worse last 8 months radiating to the legs Technique: Multiple MRI axial and sagittal sections lumbar spine. Sagittal T2-weighted images, TR 3500, TE 118 T1 weighted transverse sections, TR 688 T8.5, T2-weighted sagittal sections T1 weighted sagittal sections TR 621, TE 30 T2 axial sections, TR 4, 190, TE 84. Findings: Adequate limited lumbar vertebral bodies Advanced disc narrowing L3-L4, L4-L5 Diffuse lumbar disc desiccation L5-S1 4 mm central right paracentral disc bulge displacing the right S1 nerve root L4-L5 3 mm central lumbar disc bulge L3-L4 6 mm left foraminal disc bulge but no ganglionic compression L2-L3 6 mm right foraminal disc bulge but no ganglionic compression L1-L2 no disc protrusion IMPRESSION: L5-S1 4 mm central right paracentral disc bulge displacing the right S1 nerve root L4-L5 3 mm central lumbar disc bulge
== END | disposition home or self-care (01) ==
LOC: SMRI 07:38
PROVIDERS: PCP Physician Assistant Medical; Referring Provider Physician Assistant Medical; Visit Provider Physician Assistant Medical
DX: M51.370 Other intervertebral disc degeneration, lumbosacral region with discogenic back pain only (principal); M51.360 Other intervertebral disc degeneration, lumbar region with discogenic back pain only; S83.242A Other tear of medial meniscus, current injury, left knee, initial encounter; S83.512A Sprain of anterior cruciate ligament of left knee, initial encounter; X58.XXXA Exposure to other specified factors, initial encounter
CPT/HCPCS: 72148; 73721